=== PATIENT | female | born 1985 | race Caucasian/White ===

== ENCOUNTER → 2019-06-28 11:34 | Outpatient (CLI) | payer OTHER, SELFPAY ==
--- NOTE | 2019-06-28 | DI.US.S_ITS ---
PROCEDURE: US PELVIC COMPLETE INDICATIONS: PELVIC AND PERINEAL PAIN TECHNIQUE: Real-time scanning was performed of the pelvic organs, with image documentation. Additional endovaginal scanning was necessary due to incomplete visualization of the adnexal and endometrial structures by transabdominal scanning. COMPARISON: None. FINDINGS: Transabdominal scanning: Limited scanning through the kidneys shows no hydronephrosis. No pathologic free abdominal or pelvic fluid. Endovaginal scanning: Uterus: Uterus is normal in size at 11.2 x 3.6 x 4.6 cm. The endometrium measures 9.8 mm in combined thickness. Ovaries: Complex, thickwalled cystic mass associated with the left ovary measuring 4.4 x 2.4 x 2.1 cm. IMPRESSION: Probable left hemorrhagic ovarian cyst. Recommend short-term followup pelvic ultrasound in 6-12 weeks to assess for interval resolution. Dictated by: Dayday PLASENCIA Interpreted: Nohemi Templeton MD on 06/28/2019 at 16:47 Approved by: Sherman Springer M.D. on 07/01/2019 at 15:57
== END ==
PROVIDERS: Referring Provider Physician Assistant Medical; Visit Provider Physician Assistant Medical
DX: R10.2 Pelvic and perineal pain (principal); N83.292 Other ovarian cyst, left side
CPT/HCPCS: 76830; 76856